=== PATIENT | male | born 1975 | race Caucasian/White ===

== ENCOUNTER 2021-07-08 15:38 | Emergency (ER) | payer MEDICAID, SELFPAY ==
--- NOTE | ~2021-07-08 | XR_ITS ---
EXAMINATION: XR chest 1V portable DATE: 07/08/2021 16:33 INDICATION: Right rib pain. TECHNIQUE: A single frontal view of the chest was obtained on 2 radiographs. COMPARISON: Chest 2 views 01/26/16 FINDINGS: There are airspace opacities in right midlung zone. No pleural effusion or pneumothorax. Th e heart size is normal. IMPRESSION: 1. Airspace opacities in right midlung zone, consistent with atelectasis versus pneumonia. Reviewed, dictated and finalized at location A.
--- NOTE | ~2021-07-08 | CT_ITS ---
EXAMINATION: CT abdomen pelvis w con DATE: 07/08/2021 17:53 INDICATION: Right upper quadrant abdominal pain. TECHNIQUE: Computed tomography (CT) of the abdomen and pelvis was performed with 100 mL Omnipaque 350 intravenous contrast. Automated exposure control and iterative reconstruction technique were employe d. The dose-length product was 295.34 mGy-cm. COMPARISON: CT abdomen and pelvis 03/24/2019 FINDINGS: The visualized portions of the lung demonstrate minimal atelectasis. No pleural effusion. T here is a right posterior diaphragmatic hernia containing fat. The heart size is normal. No pericardi al effusion. There is periportal edema in the liver. The gallbladder, spleen, pancreas, and adrenal g lands are normal. There are cysts in the kidneys measuring up to 7 mm in the left. There are no dilat ed loops of bowel. The appendix is normal. There are no pathologically enlarged lymph nodes. There is a small volume of pelvic ascites. There is edema of the intra-abdominal fat. There is mild lumbar sp ondylosis. IMPRESSION: 1. Small volume of pelvic ascites. Reviewed, dictated and finalized at location A.
[2021-07-08 15:40] VITALS: BP 147/89; PULSE 56; RESP 18; TEMP 37.3; O2SAT 100
--- NOTE | 2021-07-08 16:00 | ECG_ITS ---
Measurements Intervals [place] Rate: 57 P: 165 CT: 114 QRS: 144 QRSD: 89 T: 150 QT: 401 QTc: 391 Interpretive Statements SINUS BRADYCARDIA WITH SHORT CT INTERVAL LIMB LEAD REVERSAL INCOMPLETE RIGHT BUNDLE BRANCH BLOCK BORDERLINE ST-T WAVE ABNORMALITY- HIGH LATERAL LEADS BORDERLINE ECG Electronically Signed On 07-08-2021 20:41:41 CDT by Rocky Hernandez D.O.
[2021-07-08 16:13] LABS: Basophils Percent Auto 0.4 % (0.2-1.2); Eosinophils Absolute Auto 0.2 K/mm3 (0-0.3); Eosinophils Percent Auto 1.6 % (0-4.4); Hematocrit 45.1 % (42.0-52.0); Hemoglobin 14.6 g/dL (14.0-18.0); Immature Granulocyte Absolute 0.03 K/mm3 (0.00-0.031); Immature Granulocyte Percent A 0.3 % (0-0.5); Lymphocytes Absolute Auto 2.21 K/mm3 (0.9-3.2); Lymphocytes Percent Auto 21.5 % (18.3-44.2); Mean Corpuscular HGB Conc 32.4 g/dl (32-36); Mean Corpuscular Hemoglobin 28.1 pg (26-34); Mean Corpuscular Volume 86.9 fl (80-100); Mean Platelet Volume 11.2 fl (7.4-10.4); Monocytes Absolute Auto 0.8 K/mm3 (0.1-0.6); Monocytes Percent Auto 7.4 % (2.6-8.5); Neutrophils Absolute Auto 7.1 K/mm3 (1.3-6.7); Neutrophils Percent Auto 68.8 % (45.5-73.1); Platelet Count Result 233 k/mm3 (150-375); Red Blood Count 5.19 M/mm3 (4.6-6.20); Red Cell Distribution Width 14.2 % (11.5-14.5); White Blood Count 10.3 K/mm3 (4.5-10.0)
[2021-07-08 16:27] LABS: Alanine Aminotransferase 14 U/L (4-50); Albumin Level 4.4 g/dL (3.5-5.1); Alkaline Phosphatase 53 U/L (38-126); Anion Gap 5 mmol/L (8-16); Aspartate Amino Transferase 23 U/L (17-59); Bilirubin,Total 0.4 mg/dL (0.2-1.3); Blood Urea Nitrogen 16 mg/dL (9-20); Calcium 9.1 mg/dL (8.4-10.2); Carbon Dioxide 27 mmol/L (22-30); Chloride 104 mmol/L (98-107); Estimated CRCL calculation 85 ml/min; Estimated Glomerular Filt Rate > 60; Glucose 106 mg/dL (65-110); Lipase 71 U/L (23-300); Potassium 3.9 mmol/L (3.4-5.0); Sodium 136 mmol/L (137-145)
--- NOTE | 2021-07-08 16:28 | ED.GENADULT ---
HPI - General Adult General Chief complaint: Abdominal Pain Stated complaint: right side pain Time Seen by Provider: 07/08/21 16:09 Source: patient and RN notes reviewed Mode of arrival: ambulatory Limitations: no limitations History of Present Illness HPI narrative: This is a 45 year old male who presents for evaluation of right lower rib pain. He developed pain on and it has remained constant . He describes his pain has dull and it becomes sharp with movement. He denies associated nausea, vomiting, fever, chills, cough, shortness of breath. He also denies pain worsening with eating. He rates pain 6/10. Took ibuprofen and someone else hydrocodone without relief. Of note, patient became near syncopal when walking to bathroom. Related Data Home Medications Medication Instructions Recorded Confirmed levothyroxine 07/08/21 Allergies Allergy/AdvReac Type Severity Reaction Status Date / Time No Known Allergies Allergy Verified 07/08/21 16:06 Review of Systems Review of Systems: All systems reviewed & are unremarkable except as noted in HPI and below PMFSH Past Medical History Medical History (Updated 07/09/21 @ 00:00 by Marcia Shields) Hypothyroid Surgical History Surgical History (Updated 07/08/21 @ 16:32 by Ambar Benton MD) Hx of tonsillectomy Family History Family History (Updated 06/30/14 @ 07:13 by DOCTOR UNKNOWN) Grandparent Carcinoma of colon Social History Social History (Updated 07/08/21 @ 16:32 by Ambar Benton MD) Smoking packs per day: 0.5 Smoking cigarettes per day: 10.0 Smoking status: Current every day smoker Alcohol intake: current Substance use type: marijuana Exam Const: General: no acute distress and alert Nutritional Appearance: thin Orientation/consciousness: patient oriented x3 Eyes: EOM: EOMs intact bilaterally Chest: Chest palpation & inspection: normal inspection of the chest Resp: Effort & Inspection: normal respiratory effort and no retractions Auscultation: clear to auscultation bilaterally Cardio: Rate: regular rate Rhythm: regular rhythm Heart sounds: no murmurs GI: GI Palp: Yes Soft to palpation, Yes Tenderness to palpation present (GI) (RUQ), No Guarding due to palpation present (GI) and No Rigid due to palpation Auscultation: normal bowel sounds Back/Spine/Pelvis: Back: no CVA tenderness Skin: General skin exam: normal color Rashes: no rashes Neuro: General: patient oriented x3, moves all extremities and CN's II-XI intact bilaterally Extrem: General: normal to inspection Psych: Mental Status: mental status grossly normal Affect: normal affect Course Reevaluation(s) Reevaluation #1: I Discussed with patient labs and CT scan. I discussed with patient that he will need to follow up with PCP regarding today's visit. Date: 07/08/21 Time: 19:36 Vital Signs Vital signs: Vital Signs Temperature 99.2 F 07/08/21 15:40 Pulse Rate 56 L 07/08/21 15:40 Respiratory Rate 18 07/08/21 15:40 Blood Pressure 147/89 H 07/08/21 15:40 Pulse Oximetry 100 07/08/21 15:40 Temperature 99.2 F 07/08/21 15:40 Pulse Rate 52 L 07/08/21 19:55 Respiratory Rate 14 07/08/21 19:55 Blood Pressure 142/91 H 07/08/21 19:55 Pulse Oximetry 99 07/08/21 19:55 Medical Decision Making Vital Signs Vital Signs: Vital Signs Temperature 99.2 F 07/08/21 15:40 Pulse Rate 56 L 07/08/21 15:40 Respiratory Rate 18 07/08/21 15:40 Blood Pressure 147/89 H 07/08/21 15:40 Pulse Oximetry 100 07/08/21 15:40 Temperature 99.2 F 07/08/21 15:40 Pulse Rate 52 L 07/08/21 19:55 Respiratory Rate 14 07/08/21 19:55 Blood Pressure 142/91 H 07/08/21 19:55 Pulse Oximetry 99 07/08/21 19:55 Lab Data Lab results reviewed: Yes I reviewed the patient's lab results. Result diagrams: 07/08/21 15:52 07/08/21 15:52 Labs: Lab Results 07/08/21 07/08/21
[2021-07-08 16:40] VITALS: BP 124/86; PULSE 55
[2021-07-08 16:42] VITALS: BP 133/90; PULSE 57
[2021-07-08 16:44] VITALS: BP 122/92; PULSE 60
[2021-07-08] MEDS: LACTATED RINGERS 1,000 ML 999 ML IV CONT (16:56)
[2021-07-08] MEDS: ONDANSETRON INJ 4 MG/2 ML VIAL IV PUSH (16:57)
[2021-07-08 16:59] LABS: Magnesium 1.9 mg/dL (1.6-2.3)
[2021-07-08 17:08] LABS: Partial Thromboplastin Time 27.4 SECONDS (22.3-36.8); Prothrombin Time 12.9 Seconds (11.1-14.7)
[2021-07-08 17:36] LABS: D Dimer 0.27 ug/mL (<0.48)
[2021-07-08 18:46] VITALS: BP 127/77; PULSE 54; RESP 16; O2SAT 100
[2021-07-08 18:47] LABS: NT Pro B Type Natriuretic Pept 131 pg/mL (5-100); Troponin I < 0.012 ng/mL (0.000-0.034)
[2021-07-08 18:58] LABS: Add Urine Microscopic? YES; Appearance Urine Clear (Clear); Bilirubin Urine Negative (Negative); Blood Urine Negative (Negative); Color Urine Colorless (Yellow); Glucose Urine UA Negative (Negative); Ketones Urine Trace mg/dL (Negative); Leukocyte Esterase Ur Negative LEU/UL (Negative); Mucus Urine Rare /lpf; Nitrate Urine Negative (Negative); Protein Urine Negative (Negative); RBC Urine 0-2 /hpf (0-2); Urobilinogen Urine Negative mg/dL (<2.0); WBC Urine 0-3 /hpf
[2021-07-08 19:08] LABS: Specific Grav Ur 1.047 (1.001-1.035)
[2021-07-08 19:44] LABS: Hepatitis B Surface Antigen Negative (Negative)
[2021-07-08] MEDS: KETOROLAC 30 MG/ML VIAL (*BKC) IV PUSH (19:47)
[2021-07-08 19:50] LABS: HAV RESULT Negative (Negative); Hepatitis B Core IgM Result Negative (Negative)
[2021-07-08 19:55] VITALS: BP 142/91; PULSE 52; RESP 14; O2SAT 99
[2021-07-08 20:02] LABS: Hepatitis C Virus Antibody Negative (Negative)
== END 2021-07-08 20:08 | disposition home or self-care (01) ==
PROVIDERS: Emergency Medicine; Emergency Provider General Practice; PCP Nurse Practitioner Family
DX: R10.11 Right upper quadrant pain (principal); R55 Syncope and collapse; R60.9 Edema, unspecified; K44.9 Diaphragmatic hernia without obstruction or gangrene; E03.9 Hypothyroidism, unspecified; F17.210 Nicotine dependence, cigarettes, uncomplicated; R00.1 Bradycardia, unspecified; I45.10 Unspecified right bundle-branch block; R94.31 Abnormal electrocardiogram [ECG] [EKG]
CPT/HCPCS: 36415; 71045; 74177; 80053; 80074; 81001; 83690; 83735; 83880; 84484; 85025; 85380; 85610; 85730; 93005; 96361; 96374; 96375; 99284; J0131; J1885; J2405; J7120; Q9967

== ENCOUNTER → 2021-10-09 03:02 | Outpatient (CLI) | payer OTHER, SELFPAY ==
[2021-10-09 20:28] LABS: SARS-CoV-2 RNA PCR Negative
== END ==
PROVIDERS: PCP Nurse Practitioner Family
DX: Z20.822 Contact with and (suspected) exposure to COVID-19 (principal)
CPT/HCPCS: C9803; U0003; U0005

== ENCOUNTER 2022-03-06 11:04 | Outpatient (CLI) | payer OTHER, SELFPAY ==
--- NOTE | ~2022-03-06 | US_ITS ---
EXAMINATION: US thyroid DATE: 03/06/2022 11:50 INDICATION: Hypothyroidism. TECHNIQUE: Multiple ultrasound images of the thyroid were obtained. COMPARISON: None. FINDINGS: The right thyroid lobe measures 2.9 x 1.5 x 1.9 cm. The left thyroid lobe measures 3.4 x 1.1 x 1.1 c m. The thyroid demonstrates heterogeneous echogenicity. No discrete nodule. Vascularity is normal. IMPRESSION: 1. Heterogeneous thyroid, likely chronic lymphocytic (Rodolfo) thyroiditis. Reviewed, dictated and finalized at location B.
== END 2022-03-06 11:05 | disposition home or self-care (01) ==
PROVIDERS: PCP Nurse Practitioner Family
DX: E03.9 Hypothyroidism, unspecified (principal)
CPT/HCPCS: 76536

== ENCOUNTER 2022-11-19 09:53 | Outpatient (CLI) | payer OTHER, SELFPAY ==
--- NOTE | ~2022-11-19 | XR_ITS ---
XR thoracic spine 2V DATE: 11/19/2022 10:14 INDICATION: Chronic back pain, bilateral foot tingling TECHNIQUE: AP, lateral, swimmer views COMPARISON: 01/31/2012 MR thoracic spine FINDINGS: There is mild levoscoliosis of the upper thoracic spine and mild dextroscoliosis of the low er thoracic spine. No fracture or dislocation or bone destruction. The thoracic pedicles are intact. No paraspinal soft tissue thickening. IMPRESSION: Mild thoracic scoliosis Reviewed, dictated and finalized at location L. 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
--- NOTE | ~2022-11-19 | XR_ITS ---
XR lumbar spine 2-3V DATE: 11/19/2022 10:15 INDICATION: Chronic low back pain, bilateral foot tingling TECHNIQUE: AP, lateral views COMPARISON: 05/05/2007 lumbar spine FINDINGS: There is mild degenerative spurring of the L2-L5 lumbar vertebral bodies. Lumbar and lumbos acral interspaces are well preserved. Included lower thoracic and lumbar pedicles are intact. No fracture or bone destruction. No spondylol isthesis. The sacroiliac joints are normal. IMPRESSION: Mild degenerative change Reviewed, dictated and finalized at location L. 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
--- NOTE | 2022-11-19 15:09 | WPDPFTINT ---
PFT Procedure Performed PFT Procedure Performed Spirometry with Pre/Post Bronchodilator Plethysmography (Lung Vol) Diffusing Cap (DLCO) Flow Vol Loop PFT Interpretation This is a pulmonary function test with pre and post-bronchodilator spirometry, plethysmography and diffusing capacity. The test was performed and results interpreted in accordance with the 2019 and 2005 ATS/ERS Task Force guidelines respectively using the Global Lung Function Initiative-2012 reference equations. Patient demonstrated good effort and cooperation. Reproducibility criteria were met. The quality of the pre bronchodilator spirometry maneuver was Grade A and post bronchodilator spirometry maneuver was Grade A. Findings: Spirometry: The contour the inspiratory and expiratory flow tracing are normal. The pre bronchodilator FVC is 6.54 L, 108% predicted. The pre bronchodilator FEV1 is 4.87 L, 103% predicted. The pre bronchodilator FEV1: FVC ratio 75%. The post bronchodilator FVC is 6.43 L, representing a 2% decrease. The post bronchodilator FEV1 is 4.79 L, representing a 2% decrease. The post bronchodilator FEV1: FVC ratio 75%. Plethysmography: The total lung capacity is 8.62 L, 108% predicted. Functional residual capacity is 4.45 L, 107% predicted. The residual volume is 2.08 L, 92% predicted. Diffusing capacity: The diffusing capacity unadjusted for hemoglobin and carboxyhemoglobin is 29.9, 89% predicted. The diffusing capacity adjusted for alveolar volume is 4.06, 93% predicted. Impression: The spirometry is normal without evidence of an obstructive abnormality. There is no significant improvement after inhaling a single dose of albuterol. The lung volumes are normal. The diffusing capacity is normal. There are no prior studies for comparison
== END 2022-11-19 09:54 | disposition home or self-care (01) ==
PROVIDERS: PCP Nurse Practitioner Family; Visit Provider Internal Medicine Endocrinology, Diabetes & Metabolism
DX: R06.09 Other forms of dyspnea (principal); M41.9 Scoliosis, unspecified; M46.06 Spinal enthesopathy, lumbar region
CPT/HCPCS: 72070; 72100; 94060; 94726; 94729

== ENCOUNTER 2024-12-19 15:51 | Emergency (ER) | payer SELFPAY ==
--- NOTE | 2024-12-19 15:57 | ED.WOUNDLAC ---
HPI - Wound/Laceration General Chief Complaint: Wound/Laceration Stated Complaint: Right Hand Laceration Time Seen by Provider: 12/19/24 16:05 Source: patient and RN notes reviewed Mode of arrival: ambulatory Limitations: no limitations History of Present Illness HPI narrative: 49-year-old male presents with concern for laceration to his right hand. Reports he was doing dishes when he cut his finger on a broken glass. He is not sure of his tetanus status. He denies any decreased strength, sensation, range of motion in the hand or digits. Related Data Home Medications ?Medication ?Instructions ?Recorded ?Confirmed ?Last Taken ?Type levothyroxine 112 mcg tablet 07/08/21 07/08/21 History Allergies Allergy/AdvReac Type Severity Reaction Status Date / Time No Known Allergies Allergy Verified 12/19/24 15:57 Review of Systems Review of Systems: CONSTITUTIONAL: Denies malaise, chills, sweats, or fever. SKIN: Reports laceration to the right hand MUSCULOSKELETAL: Denies muscle skeletal pain NEUROLOGIC: Denies numbness, weakness All systems reviewed & are unremarkable except as noted in HPI and below PMFSH Past Medical History Medical History (Updated 12/19/24 @ 16:14 by Annette Roy NP) Hypothyroid Surgical History Surgical History (Updated 07/08/21 @ 16:32 by Ambar Benton MD) Hx of tonsillectomy Family History Family History (Updated 06/30/14 @ 07:13 by DOCTOR UNKNOWN) Grandparent Carcinoma of colon Social History Social History (Updated 07/08/21 @ 16:32 by Ambar Benton MD) Smoking packs per day: 0.5 Smoking cigarettes per day: 10.0 Smoking status: Current every day smoker Alcohol intake: current Substance use type: marijuana Comments At time of signature, agree with nursing past medical, surgical, social and family history. There is no relevant family history pertinent to the presenting complaint Exam Narrative: GENERAL: Well-appearing, well-nourished, and in no acute distress. HEAD: Normocephalic EYES: PERRLA, conjunctivae clear NECK: Supple. CHEST: Speaks in full sentences. No respiratory distress. HEART: Regular rate and rhythm. Normal and equal peripheral pulses. EXTREMITIES: Right hand and digits of hand have normal strength and sensation. 5/5 strength with digit flexion, extension. Range of motion normal. No clubbing, cyanosis, or edema noted. No tenderness.Normal digital cascade with flexion of fingers, median, ulnar and radial nerve intact. Normal sensation of each side of finger. Can perform 'okay' sign, 'cross over finger test of index and middle fingers' and 'thumbs up' sign. No scissoring. Normal thumb opposition. Good capillary refill and radial pulse. Distal capillary refill less than 3 seconds. SKIN: Warn, dry, intact, pink. 2 cm laceration in the web between the 3rd and 4th digits into the subcutaneous tissue NEURO: Alert and oriented x3. PSYCH: Normal mood and affect Course Course Emergency Course: Patient is aware of diagnosis, understands and agrees to treatment plan. Anticipatory guidance given. Patient agrees to follow-up as directed and is aware of reasons to seek care at the emergency department. Portions of this record may have been created with voice recognition software Level of Care: Express Care Visit Vital Signs Vital signs: Reviewed. Procedures Laceration Laceration 1: Date: 12/19/24 Time: 16:12 Site: hand Side (If applicable): right Size (cm): 2 Description: linear Depth: simple, single layer Local Anesthetic: lidocaine 1% Amount of anesthesia used (mL): 4 ====== Skin Level ====== Skin layer closed with: nylon Size (cm): 4-0 Number of sutures: 4 Technique: simple, interrupted ====== Subcutaneous Layer ====== ====== Muscle Layer ====== ====== Tendon Layer ====== MDM - Wound/Laceration MDM Narrative Medical decision making narrative: Wound explored for foreign body and copious irrigation provided with no evidence of FB. Discussed the potential of retained foreign body with the patient and signs/symptoms that should prompt the patient to immediately go to the ED for reevaluation. The wound was explored and no foreign bodies were found. There was no evidence of tendon or nerve lacerations.A sterile dressing was then applied and anticipatory guidance was provided. Tetanus prophylaxis [(was/was not)] given Differential Diagnosis Differential diagnosis: Likely laceration, abrasion and avulsion of skin Critical Care Time Critical Care Time Critical Care Time: No Discharge Plan Discharge Clinical Impression: Hand laceration Patient Disposition: Home, Self-Care Condition: Stable Instructions: Laceration (ED) Additional Instructions: Keep wound clean, and dry. Apply antibiotic ointment twice daily. Cover with bandage as needed to prevent contamination. Clean with soap and water twice daily, but do not soak, take baths, or swim until wound is completely healed. Do not clean with hydrogen peroxide. If any signs of infection such as redness, swelling, increasing pain, drainage of purulent discharge, streaks up your extremity develop, seek medical attention immediately. Followup with your primary care provider in 10 days for suture removal. Patient Language: Telugu Prescriptions: No Action levothyroxine 112 mcg tablet Follow-up/Referrals: Stanford Cyr MD [Primary Care Provider] - Time of Disposition: 16:14
[2024-12-19 15:59] VITALS: BP 143/89; PULSE 69; RESP 16; TEMP 37.1; O2SAT 100
[2024-12-19] MEDS: TETANUS,DIPHTHERIA,AC PERTUSSIS ADULT (0.5 ML) BOOSTRIX IM (16:24)
[2024-12-19] MEDS: LIDOCAINE 1% LOCAL INJ 2 ML AMPUL 4 ML INFILTRATE (16:25)
== END 2024-12-19 16:50 | disposition home or self-care (01) ==
PROVIDERS: Emergency Provider Nurse Practitioner; PCP Family Medicine
DX: S61.411A Laceration without foreign body of right hand, initial encounter (principal); W25.XXXA Contact with sharp glass, initial encounter; Y93.G1 Activity, food preparation and clean up; Z23 Encounter for immunization; F17.210 Nicotine dependence, cigarettes, uncomplicated; F12.90 Cannabis use, unspecified, uncomplicated; E03.9 Hypothyroidism, unspecified
CPT/HCPCS: 12001; 90471; 90715; 99212; G0463; J2003

== ENCOUNTER 2025-04-11 08:27 | Emergency (ER) | payer SELFPAY ==
--- NOTE | ~2025-04-11 | XR_ITS ---
Left foot Technique: AP, oblique, and lateral views were obtained. Clinical History: Foreign body Findings: No acute fracture or dislocation is seen. Osseous alignment is anatomic. Joint spaces are p reserved without erosive or degenerative change. Soft tissues are unremarkable. Impression: Unremarkable left foot radiographs. Reviewed, dictated and finalized at [facility]. Impression: Unremarkable left foot radiographs.
[2025-04-11 08:30] VITALS: BP 144/90; PULSE 56; RESP 17; TEMP 36.6; O2SAT 100
--- NOTE | 2025-04-11 08:34 | ED_ITS ---
HPI - Extremity Injury (Lower) General Chief Complaint: Extremity Injury, Lower Stated Complaint: stepped on nail Time Seen by Provider: 04/11/25 08:41 Source: patient, RN notes reviewed and old records reviewed Mode of arrival: ambulatory Limitations: no limitations History of Present Illness HPI Narrative: 49-year-old male presents to the [facility] with decreased range of motion of his ankle and toes 4/5 on the left foot since . Patient reports 3 weeks ago he stepped on a metal lawn ornament through his crocks. No redness, no swelling, no pain. Patient reports that intermittently he has had pain and cramping in the foot and leg. States that sometimes it goes numb any falls. Patient originally denied any past medical history other than thyroid disorder. Denied any back pain or injuries. Related Data Home Medications ?Medication ?Instructions ?Recorded ?Confirmed ?Last Taken ?Type levothyroxine 112 mcg tablet 07/08/21 07/08/21 History Allergies Allergy/AdvReac Type Severity Reaction Status Date / Time No Known Allergies Allergy Verified 04/11/25 08:41 Review of Systems Review of Systems: All systems reviewed & are unremarkable except as noted in HPI and below Constitutional: Constitutional: Reports no additional constitutional complaints ENT: Reports system reviewed and no additional complaints, except as docum ented Cardiovascular: Cardiovascular: Reports no additional cardiovascular complaints, Denies chest pain and Denies dyspnea Respiratory: Respiratory: Reports no additional respiratory complaints, Denies chest congestion, Denies cough and Denies dyspnea Musculoskeletal: Musculoskeletal: Reports as per HPI Integumentary/Breasts: Skin/Breast: Reports system reviewed and no additional complaints, except as docu PMFSH Past Medical History Medical History Hypothyroid Surgical History Surgical History Hx of tonsillectomy Family History Family History Grandparent Carcinoma of colon Social History Social History Smoking packs per day: 0.5 Smoking cigarettes per day: 10.0 Smoking status: Current every day smoker Alcohol intake: current Substance use type: marijuana Comments At the time of my signature, I reviewed and agree with the nursing past medical, surgical, social, and family history. There is no relevant family history pertinent to the patient complaint. Exam Const: General: cooperative, healthy appearing, comfortable, no acute distress, well developed, alert and well nourished Nutritional Appearance: well nourished Orientation/consciousness: patient oriented x3 Limitations: no limitations HENMT: Head: normal to inspection Mouth: Yes Normal oral and palatal mucosa present, Yes lip normal, Yes tongue normal and Yes moist mucous membranes Eyes: General: appearance normal, both eyes and all related structures Alignment and Position: alignment normal Neck: Neck: normal visual inspection, full ROM, no lymphadenopathy and no meningeal signs Chest: Chest palpation & inspection: normal inspection of the chest Resp: Effort & Inspection: normal respiratory effort and able to speak in complete sentences Cardio: Rate: regular rate GI: GI Palp: No abdominal tenderness Back/Spine/Pelvis: Back: no CVA tenderness Cervical Spine: normal cervical lordosis, cervical ROM normal and No Cervical spine tenderness Thoracic/Lum bar Spine: No thoraco-lumbar spasm, No thoracic spinal tenderness and No lumbar spinal tenderness Pelvis: no pain with anterior-posterior compression and no pain with lateral compression Skin: General skin exam: normal color and no rashes or lesions noted Neuro: General: patient oriented x3, moves all extremities and no meningeal signs Cognition (Neuro): normal cognition Speech: normal speech Gait exam (Neuro): Normal gait present Extrem: General: normal to inspection, full ROM, capillary refill normal and normal gait Left lower extremity: ankle Details: no edema and abnormal ROM (Decreased range of motion without pain) and foot Details: normal capillary refill, abnormal ROM of toe, vascular exam Details: dorsalis pedis pulse present and normal capillary refill, motor-sensory exam light-touch normal in all toes and other (Decreased range of motion to toes foreign 5.); no tenderness, no ecchymosis, no foreign bodies and no puncture wound Psych: Appearance: grossly normal and well kempt Mental Status: mental status grossly normal Speech and movement: Normal speech and movement present and Clear speech present Affect: normal affect Attitude: cooperative Course Course Level of Care: Express Care Visit Vital Signs Vital signs: Vital Signs Temperature 97.8 F 04/11/25 08:30 Pulse Rate 56 L 04/11/25 08:30 Respiratory Rate 17 04/11/25 08:30 Blood Pressure 144/90 H 04/11/25 08:30 Pulse Oximetry 100 04/11/25 08:30 Oxygen Delivery Room Air 04/11/25 08:30 Temperature 97.8 F 04/11/25 08:30 Pulse Rate 56 L 04/11/25 08:30 Respiratory Rate 17 04/11/25 08:30 Blood Pressure 144/90 H 04/11/25 08:30 Pulse Oximetry 100 04/11/25 08:30 Oxygen Delivery Room Air 04/11/25 08:30 Reviewed MDM - Extremity Injury (Lower) MDM Narrative Medical decision making narrative: Patient sitting in exam room. Patient is nontoxic, vitals stable. Patient presents with 4 day history of decreased range of motion of the ankle and toes 4 and 5. Patient was originally concerned that it was from stepping on a lawn or min. No erythema, ecchymosis, no tenderness to the heel. No puncture wound noted. Discussed with patient more concern for back issues in regards to the decreased range of motion and falling. Discussed going to the ER which he is declining. Wants follow-up with primary care provider. Discussed in great detail signs and symptoms to proceed to the emergency room. Discussed that symptoms may be from his back. Patient denies any loss or retention of bowel or bladder. Denies any pain currently on exam. Denies any numbness or tingling in extremities currently. Discharge instructions reviewed with patient, as well as provided in writing per nursing staff. The instructions also include specific and strict return/GO TO THE ER as well as f/u information. All questions have been answered, and the patient deny any further questions with discharge and discharge plan. Some parts of this dictation were generated by voice recognition software and may contain typographical and/or grammatical inaccuracies. Differential Diagnosis Differential diagnosis: Likely ankle sprain and strain and other (Infection, tendinitis from puncture wound, lumbar strain, sprain, lumbar radiculopathy, sciatica) Imaging Data Radiologist's impression: Left foot Technique: AP, oblique, and lateral views were obtained. Clinical History: Foreign body Findings: No acute fracture or dislocation is seen. Osseous alignment is wendi omic. Joint spaces are preserved without erosive or degenerative change. Soft tissues are unremarkable. Impression: Unremarkable left foot radiographs. Critical Care Time Critical Care Time Critical Care Time: No Discharge Plan Discharge Clinical Impression: Decreased range of motion of left ankle, History of low back pain, Multiple falls Patient Disposition: Home Condition: Stable Instructions: Antibiotic Form, Acute Low Back Pain (ED) Additional Instructions: Follow-up with your primary care provider as soon as possible for further evaluation, testing and treatment For worsening symptoms go directly to the emergency room Patient Language: Lao Prescriptions: No Action levothyroxine 112 mcg tablet Follow-up/Referrals: Kalpesh,Emily Dumont NP [Primary Care Provider] - 2 Days ([facility] follow-up) Stand Alone Forms: Work/School Release IP Time of Disposition: 09:21
== END 2025-04-11 09:28 | disposition home or self-care (01) ==
PROVIDERS: Emergency Provider Nurse Practitioner; PCP Nurse Practitioner Family
DX: M25.872 Other specified joint disorders, left ankle and foot (principal); M54.50 Low back pain, unspecified; R29.6 Repeated falls; F17.210 Nicotine dependence, cigarettes, uncomplicated; E03.9 Hypothyroidism, unspecified
CPT/HCPCS: 73630; 99213; G0463

== ENCOUNTER 2025-05-24 07:09 | Outpatient (CLI) | payer MEDICAID, SELFPAY ==
--- NOTE | ~2025-05-24 | MR_ITS ---
EXAMINATION: MR ankle LT wo con DATE: 05/24/2025 08:00 INDICATION: Spontaneous rupture of the extensor tendons at the left ankle with left foot drop TECHNIQUE: Magnetic resonance imaging (MRI) of the left ankle was performed without intravenous contr ast. Sequences included sagittal, coronal, and axial proton-density weighted fast spin echo without a nd with fat saturation. COMPARISON: None. FINDINGS: Medial ankle ligaments: Deep deltoid ligament is normal. There is thickening and mild increased signal at navicular side of t he anterior superficial deltoid ligament as well as the superomedial component of the spring ligament complex without significant surrounding edema consistent with scarring related to chronic sprain. Th e medial plantar oblique and infra plantar lateral components of the spring ligament complex remains normal. Lateral ankle ligaments: The anterior and posterior inferior tibiofibular ligaments are normal. The anterior talofibular, calc aneofibular and posterior talofibular ligaments are normal. Tendons: Achilles tendon is normal. There is fluid along the peroneal tendon sheath consistent with mild to mo derate tenosynovitis. There is tendinopathy and longitudinal split tearing of the peroneus brevis ten don at the level of the posterior lateral malleolus where there is a convex contour to the expected l ocation retromalleolar groove. The tibialis anterior and extensor hallucis longus and extensor digito rum longus tendons are normal. The tibialis posterior, flexor digitorum longus and flexor hallucis lo ngus tendons are normal. Plantar fascia: Plantar aponeurosis is normal. Bones/other: Bone alignment is normal. No fracture. Small low signal intensity bone islands at the tibial plafond and and a couple at the talar dome. There are some increased fluid signal and small centrally sclerot ic focus within a 2.9 x 2.7 x 2.5 cm fat saturating intraosseous lipoma within the central calcaneus. No other pathologic marrow replacing process. Joint spaces appear relatively preserved. Fluid: Physiologic amount fluid in the joint spaces. There is a 1.8 x 1.1 x 1.4 cm multilobulated ganglion c yst arising from and extending plantar to the articulation between the cuboid and the lateral cuneifo rm. IMPRESSION: 1. Mild to moderate peroneal tenosynovitis with tendinopathy and longitudinal split tearing of the pe roneus brevis tendon. 2. Mild scarring related to chronic sprain at the anterior aspect of the superficial deltoid ligament and the clavicular side of the superomedial component of the spring ligament complex. 3. Visualized portions of the extensor tendons of the foot and ankle are normal with no etiology iden tified for reported foot drop. Reviewed, dictated and finalized at location A. IMPRESSION: 1. Mild to moderate peroneal tenosynovitis with tendinopathy and longitudinal s plit tearing of the peroneus brevis tendon. 2. Mild scarring related to chronic sprain at the anterior aspect of the superf icial deltoid ligament and the clavicular side of the superomedial component of the spring ligament complex. 3. Visualized portions of the extensor tendons of the foot and ankle are normal with no etiology identified for reported foot drop.
--- OUTSIDE RECORDS SUMMARY | 2025-05-24 07:13 | XMS_ITS | Patient Health Record ---
Author Organization [facility] Address [address] [facility] [address] [place] [address] Care Team Providers Care Check Airman Name Role Phone Juan Limon Unavailable [phone] Reason For Referral No Information Medications Medication SIG (Take, Route, Frequency, Duration) Notes Start Date End Date Status Unithroid 125 MCG Oral Ac tive Propranolol HCl 10 MG Oral Active Unithroid 137 MCG Oral Ac tive Liothyronine Sodium 5 MCG Oral Active Doxycycline Hyclate 100 MG Oral Active Sertraline HCl 25 MG Oral Active Azithromycin 500 MG Oral Active Plan Of Treatment No Information
--- OUTSIDE RECORDS SUMMARY | 2025-05-24 07:13 | XMS_ITS | Data Portability ---
Author Organization [place] [facility] [place] [facility], Main Office Address [address] [place] [address] Assessment No assessment recorded. Plan of Treatment Reminders Order Date Submit Date Provider Last Modified By Organization Details Last Modified Time Details Appointments Follow Up 15 2024 03:30P GONZALO Tejada Not available Not available Not available Lab TSH, serum or plasma 2024 025 [facility], [address], [address], [place], [address], 01/28/2025 08:20:59 TSH + free T4, serum 2023 024 [facility] ([facility] [address] [place], [address], 11/14/2023 11:50:40 TSH + free T4, serum 2022 023 [email or web address] [facility], [address], [place], [address], 09/23/2023 09:30:28 Referral podiatris t referral - Please call patient to schedule an appointme nt. Thank you. 2024 025 ISHAN Zhou DPM, [address] [facility], [facility] [address], [address], 04/15/2025 12:15:58 psychiatr ist referral - Please call patient to schedule appointme nt. 2023 024 [email or web address] Juan Limon MD, [address], [address], [place], [address], 12/12/2023 14:32:14 gastroent erologist referral 2022 023 [email or web address] Ida Weiss MD, [address], [address], [place], [address], 12/08/2023 09:49:41 counselin g referral 2022 023 [email or web address] [facility], [address], [place], [address], 01/23/2024 10:16:41 endocrino logy referral 2022 023 [email or web address] [facility], [address] [place], [address], 01/23/2024 10:16:08 Procedures colonosco py procedure (PROC) [email or web address] [place] [address] Ctr (Pre-Screen), [address] [facility], [place], [address], 12/04/2023 08:11:49 Surgeries None recorded. Imaging MRI, sacrum + coccyx, w/o contrast - *Please call pt to schedule* [email or web address] [place] [address] (Imaging), [address], [place], [address], 10/23/2023 09:17:34 Medication Orders levothyro xine 137 mcg tablet 2024 025 [id number], [address] [facility], [place], [place], [id number], 04/13/2025 17:07:09 Unithroid 137 mcg tablet 2024 025 [facility] #06616, [address] , [place], [place], [id number], 01/21/2025 15:42:06 sertralin e 50 mg tablet 2024 025 [facility]84429, [address], [place], [place], [id number], 01/21/2025 15:42:11 Golytely 236 gram-22.7 4 gram-6.74 gram-5.86 gram oral solution [address] [facility]22741, [address], [place], [place], [id number], 01/21/2025 15:25:20 Unithroid 137 mcg tablet 2023 024 [facility]18143, [address], [place], [place], [id number], 11/14/2023 11:26:15 sertralin e 50 mg tablet 2023 024 [facility]18785, [address], [place], [place], [id number], 11/14/2023 11:26:16 sertralin e 25 mg tablet [address] [facility]86361, [address], [place], [place], [id number], 01/21/2025 15:27:06 propranol ol 10 mg tablet [address] [facility] #91714, [address], [place], [place], [id number], 01/21/2025 15:27:00 Patient TargetsNo targets recorded. Patient Instructions Encounter Date Encounter Id Patient Instructions Last Modified By Organization Details Last Modified Time 11/19/2023 [id number] GOLYTELY [email or web address] Not available 14:25:13 PT NEEDS A SCREENING COLON . R/O POLYP . RECOMMEND A COLONOSOPY . Risks benefits and complications were explained to the pt. ( BLEEDING PERFORATION , INFECTION , ). PT VERBALIZES UNDERSTANDING AND IS WILLING TO PROCEDE . 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 Thank you. Referring Physician: Bridget Glover [facility], Encounter Date: 04/13/2025 Results Created Date Observation Date Name Description Value Unit Range Abnormal Flag Note LastModifiedBy Organization Detail LastModifiedTime 12/09/19 24 12/01/2023 colon oscop y proce dure (PROC ) No observ ation record ed. [facility] (Pre-Screen) [address] [place], [address], 12/09/2023 15:20:14 Result Notes None recorded. Problems Name Problem SNOMED Code Status Onset Date Resolution Date Notes Provider Name and Address Organization Details Recorded Time Abdominal pain 89473942 Active Not Available [facility] 3 22:07:22 Ascites 253131101 Active Not Available [facility] 3 22:07:22 Hypothyroi dism 86518948 Active Not Available [facility] 3 22:07:22 Plain X-ray of lumbar spine abnormal 693448038 Active 2022 Alison Martínez MD [address], [address] , [facility] 3 14:55:46 Luteinizin g hormone level outside reference range 245219014 Active 2022 Alison Martínez MD [address], [place], [address] , [place] [facility] 3 14:56:17 Mycoplasma species or Ureaplasma urealyticu m 656772088 Active 2022 GONZALO Torrez [address], [place], [address] , [facility] 3 18:16:06 Mucus in stool 479907996 Active 2022 DILSHAD Bettencourt [address], [place], [address] , [facility] 3 11:40:38 Anxiety 99547494 Active 2022 DILSHAD Bettencourt [address], [address], [place], [address] , [facility] - [facility] 3 11:42:46 Low back pain 207879945 Active 2022 DILSHAD Bettencourt [address], [address], [place], [address] , [facility] 3 11:49:12 Altered bowel function 40567826 Active 2023 Ida Weiss MD [address], [address], [place], [address] , [facility] 4 14:24:34 Pain in coccyx 40325845 Active 2023 Ida Weiss MD [address], [place], [address] , [facility] 4 14:26:32 Left foot drop 0830220800522 05 Active 2024 GONZALO Moraes [address], [place], [address] , [facility] [employer] [facility] [employer] 5 17:04:31 Primary hypothyroi dism 83762003 Active 2024 GONZALO Moraes [address] [facility], [facility] [address], [place], [address] , [facility] 5 17:06:34 Problem Notes None recorded. Procedures Surgical History Date Name Laterality Status Provider Name and Address Organization Details Recorded Time Tonsillectomy completed Not Available [facility] 01/01/2023 22:06:24 Imaging Results None recorded. Procedure Notes None recorded. Medical Equipment None Reported. Allergies No known drug allergies Medications Name Sig Start Date Stop Date Status Note LastModified by Organization Details LastModified Time cyclobenzap rine 10 mg tablet TAKE 1 TABLET BY MOUTH 3 TIMES A DAY NEEDED 10/19 completed Not Available Not Available Not Available amoxicillin 500 mg capsule TAKE 1 CAPSULE BY MOUTH FOUR TIMES DAILY UNTIL ALL TAKEN 01/21 completed Not Available Not Available Not Available levothyroxi ne 137 mcg tablet TAKE 1 TABLET BY MOUTH DAILY. active Not Available Not Available No t Available doxycycline hyclate 100 mg capsule TAKE 1 CAPSULE BY MOUTH TWICE DAILY FOR 7 DAYS 01/21 completed Not Available Not Available Not Available azithromyci n 250 mg tablet TK 2 TS PO ON DAY 1, THEN TK 1 T PO D FOR 4 DAYS 08/09 completed Not Available Not Available Not Available peg-electro lyte solution 420 gram oral solution MIX AND DRINK DIRECTED 01/21 completed Not Available Not Available Not Available liothyronin e 5 mcg tablet TAKE 1 TABLET BY MOUTH IN THE MORNING WITH UNITHROID AND 1 TABLET AROUND 1 PM 01/21 completed Not Available Not Available Not Available Unithroid 125 mcg tablet TAKE 1 TABLET BY MOUTH EVERY DAY IN THE MORNING 07/17 completed Not Available Not Available Not Available propranolol 10 mg tablet TAKE 2 TABLETS BY MOUTH THREE TIMES DAILY NEEDED 01/21 completed Not Available Not Available Not Available cyanocobala min (vit B-12) 1,000 mcg/mL injection solution Inject 1 mL every week by subcutane ous route in the morning for 90 days. active Not Available Not Available No t Available sertraline 25 mg tablet TAKE 1 TABLET BY MOUTH EVERY DAY 01/21 completed Not Available Not Available Not Available cyanocobala min (vit B-12) 1,[address] 1 tablet every day by sublingua l route in the morning for 90 days. 01/21 completed Not Available Not Available Not Available albuterol sulfate HFA 90 mcg/actuati on aerosol inhaler INHALE 2 PUFFS BY MOUTH EVERY 4 HOURS 01/21 completed Not Available Not Available Not Available ketoconazol e 2 % topical cream APPLY TO THE AFFECTED AREA(S) BY TOPICAL ROUTE ONCE DAILY active Not Available Not Available No t Available sertraline 50 mg tablet TAKE 1 TABLET BY MOUTH EVERY DAY active Not Available Not Available No t Available levothyroxi ne 112 mcg tablet TAKE 1 TABLET BY MOUTH EVERY DAY active Not Available Not Available No t Available azithromyci n 500 mg tablet TAKE 2 TABLETS BY MOUTH FOR 1 DAY THEN TAKE 1 TABLET BY MOUTH DAILY FOR 3 DAYS 01/21 completed Not Available Not Available Not Available Golytely 236 gram-22.74 gram-6.74 gram-5.86 gram oral solution DIRECTED 01/21 completed Not Available Not Available Not Available Vitals Date Recorded Body height Body mass index (BMI) Body weight Body temperature Oxygen saturation Oxygen saturation in Arterial blood by Pulse oximetry Heart rate Systolic And Diastolic Provider Name and Address Organization Details Last Updated DateTime 4 190.5 cm 20.2 kg/m2 35917.9 6 g 97.2 [degF] 97 % 97 % 64 /min 130/80 mm[Hg] Chetna Kwan RN [facility] 4 10:57:56 Date Recorded Body height Body mass index (BMI) Body weight Provider Name and Address Organization Details Last Updated DateTime 11/19/2023 190.5 cm 20.2 kg/m2 93017.96 g JASON Alberts [facility] 11/19/2023 14:03:45 Date Recorded Body weight Body mass index (BMI) Body height Body temperature Heart rate Respiratory rate Oxygen saturation Oxygen saturation in Arterial blood by Pulse oximetry Systolic And Diastolic Provider Name and Address Organization Details Last Updated DateTime 5 08350.8 2 g 19.4 kg/m2 190.5 cm 97.3 [degF] 59 /min 20 /min 97 % 97 % 134/90 mm[Hg] Audrey Campos RN [facility] 5 15:29:38 Date Recorded Body height Body mass index (BMI) Body weight Body temperature Oxygen saturation Oxygen saturation in Arterial blood by Pulse oximetry Heart rate Systolic And Diastolic Provider Name and Address Organization Details Last Updated DateTime 5 190.5 cm 19.6 kg/m2 95274 g 97.8 [degF] 97 % 97 % 74 /min 152/84 mm[Hg] Crystal Mccord [facility] 5 16:47:01 Date Recorded Body height Body mass index (BMI) Body weight Body temperature Heart rate Oxygen saturation Oxygen saturation in Arterial blood by Pulse oximetry Systolic And Diastolic Provider Name and Address Organization Details Last Updated DateTime 3 190.5 cm 20.5 kg/m2 76629.1 5 g 97.3 [degF] 69 /min 98 % 98 % 140/80 mm[Hg] Viviana Nogueira LPN MD [facility] 3 11:32:33 Social History Question Answer Notes LastModified by Organizat ion Details LastModified Time Tobacco Smoking Status Current Every Day Smoker Not Available [facility] 01/01/2023 22:05:59 Do You Have An Advance Directive? No [id number] Information not available 01/01/2023 What Is Your Level Of Caffeine Consumption? Heavy MIGRATION.07323 02655 Information not available 01/01/2023 How Much Tobacco Do You Chew? None MIGRATION.29422 05681 Information not available 01/01/2023 What Is Your Code Status? Full Code [id number] [id number] Information not available 01/01/2023 In The 14 Days Before Symptom Onset, Have You Had Close Contact With A Laboratory-confi rmed COVID-19 While That Case Was Ill? No MIGRATION.92104 [id number] Information not available 01/01/2023 In The 14 Days Before Symptom Onset, Have You Had Close Contact With A Person Who Is Under Investigation For COVID-19 While That Person Was Ill? No MIGRATION.73035 83825 Information not available 01/01/2023 What Type Of Diet Are You Following? REGULAR MIGRATION.58623 11674 Information not available 01/01/2023 Have There Been Any Changes To Your Family Or Social Situation? Yes MIGRATION.39970 87595 Information not available 01/01/2023 Are There Any Guns Present In Your Home? No MIGRATION.90343 12835 Information not available 01/01/2023 Where Do You Live? SingleLevelHouse Information not available 01/21/2025 Do You Have A Medical Power Of Hook Tender? No MIGRATION.06627 50725 Information not available 01/01/2023 Do You Have Any Pets? Yes Information not available 01/21/2025 What Is Your Relationship Status? MIGRATION.14274 70941 Information not available 01/01/2023 Do You Use Your Seat Belt Or Car Seat Routinely? Yes MIGRATION.66209 84822 Information not available 01/01/2023 Do You Have Smoke And Carbon Monoxide Detectors In Your Home? Yes MIGRATION.42875 07871 Information not available 01/01/2023 Are You Passively Exposed To Smoke? No MIGRATION.01410 90576 Information not available 01/01/2023 How Much Tobacco Do You Smoke? 0.5 PPD Information not available 01/21/2025 Do You Use Sunscreen Routinely? Yes MIGRATION.31727 55256 Information not available 01/01/2023 Have You Recently Traveled Abroad? No MIGRATION.68218 41815 Information not available 01/01/2023 Have You Used IV Drugs? No MIGRATION.52177 08213 Information not available 01/01/2023 Do You Have Any Dietary Restrictions? No MIGRATION.38496 73881 Information not available 01/01/2023 Sex: Unknown Functional Status Question Answer Note LastModified by Organizat ion Details LastModified Time Do you use any illicit or recreational drugs? Yes 0ccasional marijuana use MIGRATION.41312 37806 Information not available 01/01/2023 What is your level of alcohol consumption? Occasional MIGRATION.61349 64085 Information not available 01/01/2023 Are you currently employed? 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 Moderate MIGRATION.41440 92168 Information not available 01/01/2023 Mental Status Question Answer Note LastModified by Organizat ion Details LastModified Time Do you feel stressed (tense, restless, nervous, or anxious, or unable to sleep at night)? [id number] MIGRATION.[id number] Information not available 01/01/2023 Family History Relationship Description Onset Age of this Age Resolved Age Notes LastModified by Organization Details LastModified Time Maternal Grandmother Malignant tumor of colon [id number] Not available 01/01/2023 22:06:25 Medical History Condition Response BLINDNESS N RHEUMATIC FEVER N KIDNEY STONES N BLADDER PROBLEMS N MRSA N OTHER # 1 N POLIO N LUNG DISEASE/DISORDER N RADIATION / CHEMOTHERAPY N COPD N Other # 2 N BLOOD DISEASES N SURGERY N EAR OR HEARING PROBLEMS N MUMPS N FEMALE PROBLEMS / INFECTIONS N BOWEL PROBLEMS N DEPRESSION (INCLUDING POST ) N STROKE/TIA N THYROID DISEASE N ULCERS N BENIGN PROSTATIC HYPERPLASIA N MEASLES N CERVICALGIA N TB SKIN TEST N MYOCARDIAL INFARCTION N PARAPELGIA N OBESITY N GERD/NAUSEA N ANEURYSM N URINARY/BLADDER/KIDNEY PROBLEMS N CORONARY ARTERY DISEASE (CAD) N MENIERE'S DISEASE N ADDICTION CONCERNS N ENDOMETRIOSIS N USE OF BLOOD THINNERS N SKIN PROBLEMS N EMPHYSEMA N GASTROINTESTINAL DISORDER N MUSCLE,JOINT OR BONE PROBLEMS N GASTROINTESTINAL BLEEDING N BLOOD CLOTS N ASTHMA N CATARACTS N ERECTILE DYSFUNCTION N GI PROBLEMS N CHF N Low Testosterone N NEUROPATHY N INFERTILITY N AIDS/HIV N FRACTURES N CHEMOTHERAPY / RADIATION N VISION/EYE PROBLEMS N LIVER DISEASE N MALE HYPOGONADISM N HYPERTENSION N TOURETTE'S N ANXIETY DISORDER N BLOOD TRANSFUSION N ANEMIA/BLOOD DISORDER N CHRONIC EAR INFECTIONS N BRONCHITIS N TUBERCULOSIS N GLAUCOMA N FOOT PROBLEM N DIVERTICULITIS N SLEEP APNEA N CHICKENPOX N ALLERGIES/HAYFEVER N INFECTIOUS DISEASE N PROSTATE N HEART ARRHYTHMIA N INSOMNIA N HIGH CHOLESTEROL / HYPERLIPIDEMIA N EYE PROBLEMS N HYPERTHYROIDISM Y EATING DISORDER N EDEMA N CHRONIC PAIN SYNDROME N HYPOTHYROIDISM Y CONSTIPATION N CAROTID BLOCKAGE N BACK / NECK PROBLEMS N HAVE YOU BEEN HOSPITALIZED OR SEEN IN [facility] IN THE PAST YEAR ? N ATHEROSCLEROSIS N BREAST PROBLEMS N DIALYSIS N ECZEMA N FIBROMYALGIA N OSTEOPOROSIS N ARTHRITIS N NO SIGNIFICANT PAST MEDICAL HISTORY N APPENDICITIS N DIABETES, TYPE N BAD TEETH N HEARTBURN / REFLUX N ADD/ADHD N AUTISM SPECTRUM DISORDER (ASD) N HEPATITIS / LIVER DISEASE N PULMONARY DISEASE N GOUT N SLEEP DISORDER N ALZHEIMER'S DISEASE N PAIN N DEMENTIA N HERPES N SEIZURES/EPILEPSY N HEADACHES/MIGRAINES N VASCULAR DISEASE N PACEMAKER N DIZZINESS Y HEART DISEASE/HEART PROBLEMS N KIDNEY DISEASE N SCARLET FEVER N MULTIPLE SCLEROSIS N DEVELOPMENTAL OR BEHAVIORAL DISORDERS N MENTAL DISORDER/ILLNESS N CANCER: SPECIFY N CARDIAC ARRHYTHMIA N PNEUMONIA N ATRIAL FIBRILLATION N Gall Stones N PULMONARY EMBOLISM N AUTOIMMUNE DISEASE N Past Encounters Encounter ID Performer Location Encounter Start Date Encounter Closed Date Diagnosis/Indication Diagnosis SNOMED-CT Code Diagnosis ICD10 Code Diagnosis Note [id number] GONZALO Torrez [facility] Primary [facility] [place] [address] [facility] [address] [place] [address] 03/30/2021 00:00:00 03/30/2021 11:01:19 [id number] Kylee Dia MD [facility] [place] [address] [facility] [address] [place] [address] 07/27/2021 00:00:00 07/27/2021 18:10:55 [id number] _ATHN_MIGR ATION_1 _ATHENA_M IGRATION_ DEFAULT_1 _1 , 08/15/2021 00:00:00 08/15/2021 17:48:27 [id number] Kylee Dia MD [facility] Primary [facility] [place] [address] [facility] [address] [place] [address] 08/24/2021 00:00:00 08/24/2021 20:25:08 [id number] Alison Martínez MD [facility] [place] [address] [place] [id number] 10/19/2021 00:00:00 10/19/2021 15:44:28 [id number] Alison Martínez MD [facility] [place] [address] [place] [id number] 01/25/2022 00:00:00 01/25/2022 13:25:24 [id number] Alison Mart[facility]nez [facility] [place] [address] [place] [id number] 05/13/2022 00:00:00 05/13/2022 18:53:29 [id number] Alison Martínez MD [facility] [place] [address] [place] [address] 08/26/2022 00:00:00 08/26/2022 21:30:15 [id number] Alison Martínez MD [facility] [place] [address] [place] [id number] 01/17/2023 14:14:54 01/17/2023 15:20:38 Hypothyroidism 41794159 E03.9 FT4 low normal range- will uptitrate unithroid to 137 mcg and add liothyroni ne 5 mcg twice daily. Patient has cold intoleranc e will trial on T3 hormone. He was reminded to take his unithroid on empty stomach with glass of water and wait one hour to eat or have his coffee in morning and up to 4 hours if ever taking any heartburn or reflux medication s to help optimize absorption . Discussed paleo like diet with restrictio n of GMOs to help with energy and to optimize absorption of vitamins and minerals and reduce inflammati on. Plain X-ra y of lumbar spine abnormal 549744228 R93.7 Xray of spine showed spurring- patient has significan t lower back pain that does restrict his motility- need soft tissue imaging to assess nerve and to assure there are no soft tissue changes that would warrant sooner treatment than PT-PT would delay diagnosis and potential need for more aggressive treatment. Luteinizin g hormone level outside reference range 711293453 R89.1 Send for doppler u/s to screen for cysts or varicocele s as testostero ne of 800 ng/dL so in ideal range. Spent up to 28 minutes preparing to see the patient (eg, review of tests), obtaining and/or reviewing separately obtained history, performing a medically appropriat e examinatio n and evaluation , counseling and educating the patient, ordering medication s, tests, along with documentin g clinical informatio n in the electronic health record, independen tly interpreti ng results and communicat ing results to the patient. RTC in 3-4 months. Patient was provided a handwritte n lab order which contains our fax number. If he chooses to go outside of the [facility] system to obtain labwork he was advised to provide our fax number and my informatio n to the lab he will be obtaining labwork from in order to have his labs properly forwarded over for me to review so there is no loss of follow up due to use of outside network. He was also advised to contact our clinic informing us that he has completed his labwork so we are aware we will need to reach out to the appropriat e laboratory to request his results be forwarded to us so I might have the ability to review and make further medical decision making in his case. He voiced understand ing. [id number] Kylee Dia MD [facility] Primary Care [facility] [address] [facility] [address] [place] [address] 09/12/2023 11:20:46 09/12/2023 14:44:06 Hypothyroidism 31879617 E03.9 -chronic, stable-pt was referred to Dr. Marion, but she has left-will obtain labs today-new referral given Mucus in stool 808055603 R19.5 Anxiety 99195499 F41.9 -pt notes hx of anxiety for many years-note s constant sx of worry, lack of focus, sob, pacing-dis cussed referral to counseling Low back pain 810552597 M54.50 notes hx of fall on coccyx [id number] DILSHAD Bettencourt [facility] Primary Care [facility] [address] [facility] [address] [place] [address] 11/14/2023 10:49:08 11/14/2023 11:42:50 Hypothyroidism 17875886 E03.9 -he missed the call from [facility]- ans to call and f/u-refill unithroid given-labs obtained Mucus in stool 653482683 R19.5 -f/u with Dr. Weiss is 11/20/23 Anxiety 29215722 F41.9 -increasin g sertraline to 50mg d/t not getting desired effect-he has not f/u with [facility] d/t scheduling issues-has not used the propranolo l yet Attention deficit hyperactivity disorder 703930327 F90.9 -per pt he has a hx of ADHD, tx with escitalopr am in the past-he is wanting a referral to psych to obtain diagnosis [id number] Ida Weiss MD [facility] General Surgery [address] [place] [address] 11/19/2023 13:55:31 11/19/2023 14:21:20 Altered bowel function 55524401 R19.4 Pain in coccyx [id number] M53.3 TRY SITTING ON A DONUT / NSAIDS [id number] Adan Gardner MD [facility] [address] [place] [phone] 1 01/21/2025 15:18:08 01/21/2025 15:49:04 Anxiety [id number] F41.9 Well controlled with current meds Hypothyroidism [id number] E03.9 Due for labs, is self pay [id number] Adan Gardner MD [facility] [address] [place] [address] [phone] 1 04/13/2025 16:33:25 04/13/2025 17:19:06 Left foot drop [id number] M21.372 Secondary to injuryWill purchase AFO online Primary hypothyroidism [id number] E03.9 Due for labs, is self pay Health Concerns Section Related Observation LastModified by Organization Detai ls LastModified Time None Recorded Concern Status LastModified by Organization Details LastModified Time None Recorded Advance Directives Directive N: Payers Insurance Date Sequence Insurance Name Policy Number Policy Palma Covered Member ID Palma Member ID Guarantor Name 04/13/2025 1 [facility] - DOS ON OR AFTER 21 (MEDICAID REPLACEMENT - HMO) Art Cullen [id number] Art Cullen 04/13/2025 1 [place] [facility] Art Cullen [id number] Art Cullen 04/13/2025 2 [facility] (MEDICARE REPLACEMENT/AD VANTAGE - HMO) Art Cullen [id number] Art Cullen 04/13/2025 [facility] - DOS ON OR AFTER 21 (MEDICAID REPLACEMENT - HMO) Art Cullen [id number] Art Cullen 05/05/2025 1 *SELF PAY* Dhiraj Cullen 05/05/2025 1 [place] [facility] [place] Art Cullen [id number] Art Cullen Notes Date Note Type Note Provider Name and Address Organization Details Recorded Time 09/12/2023 text/html Pt is here for routine f/u Antonio FinkGONZALO tate-C [address], [place], [address], [employer] 09/12/2023 14:29:10 11/14/2023 text/html Pt is here for 1 month Antonio GONZALO Messina-Jenae [address], [place], [address], [employer] 11/14/2023 11:38:24 11/19/2023 text/html ART WAS SEEN IN THE OFFICE TODAY . PT IS C/O MUCUS PER RECTUM . PT DESCRIBES COCCYXGEAL PAIN . BMs ARE CHANGED IN CALIBER/ HE REPORTS PUSHING /STRAINING AND THIN STOOLS . HE DENIES WT LOSS . PT HAS NEVER HAD A COLONOSCOPY. Ida Weiss MD [address], [place], [address], [employer] [facility] [employer] 11/19/2023 14:27:37 01/21/2025 text/html Art Cullen is a 49 year old male patient here today for medications refills His past medical histroy is significant for anxiety. This is controlled with sertraline 50 mg, he has been off of this for a while and notes that he needs this He has a history of hypothyroidism, has been taking Unithroid 137 mcg. Needs labs refills GONZALO Moraes [address] [facility] [facility] [address], [place], [address], [employer] 01/21/2025 15:46:26 04/13/2025 text/html Art Cullen is a 49 year old male patient here today for left foot concerns He states that he stepped on a garden spike 03/03/2025 that had some rust, his foot did not bleed. He had some foot drop after this but it resolved. A few weeks later he began having severe muscle cramps and foot drop which has been causing him to fall multiple times. He did go to 1 week ago and had an XR which was negative.He is unable to flex the left foot now, can extend the foot. He does have some mild movement in the toes.His pain radiates to his left calf, thigh, and glute His last tetanus shot was 02/2025 He was stung by a wasp, has a diffuse flushing and chest tightness GONZALO Moraes [address], [facility] [address], [place], [address], [place] [facility] 04/13/2025 17:18:09
== END 2025-05-24 07:10 | disposition home or self-care (01) ==
PROVIDERS: Visit Provider Podiatrist Foot & Ankle Surgery
DX: M66.272 Spontaneous rupture of extensor tendons, left ankle and foot (principal); M21.372 Foot drop, left foot; M65.972 Unspecified synovitis and tenosynovitis, left ankle and foot; S86.312A Strain of muscle(s) and tendon(s) of peroneal muscle group at lower leg level, left leg, initial encounter; S93.422A Sprain of deltoid ligament of left ankle, initial encounter; X58.XXXA Exposure to other specified factors, initial encounter
CPT/HCPCS: 73721

== ENCOUNTER 2025-06-22 08:59 | Outpatient (CLI) | payer MEDICAID, SELFPAY ==
--- OUTSIDE RECORDS SUMMARY | 2025-06-21 13:49 | XMS_ITS | Encounter Summary ---
Author Organization [facility] Address [address] [facility] [place] [address] Phone Care Team Providers Care Studio Sales Associate Name Role Phone Bridget Glover APRN, CNP Primary Care Provider [phone] Encounter Details Date Type Department Care Team (Latest Contact Info) Description 06/21/2025 1:49 PM CDT - 06/21/2025 11:59 PM CDT Hospital Encounter [facility] [address] [place] [address] Provider, Not On File [place] Arrived Discharge Disposition: Discharged to home or Selfcare Social History Tobacco Use Types Packs/Day Years Used Date Smoking Tobacco: Every Day Cigarettes Smokeless Tobacco: Never Alcohol Use Standard Drinks/Week Comments Yes 0 (1 standard drink = 0.6 oz pur e alcohol) occasional Sex and Gender Information Value Date Recorded Sex Assigned at Not on file Legal Sex Male 8:30 AM CDT Gender Identity Not on file Sexual Orientation Not on file documented as of this encounter Medications at Time of Discharge Cyanocobalamin (B-12 PO) Take by mouth. cyclobenzaprine (FLEXERIL) 10 MG Tablet Take 10 mg by mouth 3 times daily as needed. gabapentin (NEURONTIN) 100 MG Capsule Take 100 mg by mouth 3 times daily. levothyroxine (SYNTHROID) 137 MCG Tablet Take 137 mcg by mouth daily. sertraline (ZOLOFT) 50 MG Tablet Take 50 mg by mouth daily. documented as of this encounter Plan of Treatment Upcoming Encounters Date Type Department Care Team ( Contact Info) Description 06/23/2025 8:00 AM CDT Appointment [facility] MRI [address] [place] [address] Jere Lester [facility] [address] [facility] [place] [address] Discharge Disposition: Discharged to home or Selfcare 07/29/2025 9:15 AM CDT Office Visit [facility] [address] [place] [address] Jere Lester MD [address] [place] [address] documented as of this encounter Procedures Procedure Name Priority Date/Time Associated Diagnosis Comments MR REFERENCE IMAGES FOR IMAGE IMPORT Routine 06/21/2025 1:49 PM CDT documented in this encounter Results * MR REFERENCE IMAGES FOR IMAGE IMPORT (06/21/2025 1:49 PM CDT) us Not On File Provider IMG MR ORDERABLES Final Res ult documented in this encounter Visit Diagnoses Not on filedocumented in this encounter Care Teams Studio Sales Associate Relationship Specialty Start Date End Date Bridget Glover APRN, PRECISION FILER HAND [address] [place] [address] PCP - General Advanced Practice Nurse 05/31/25 documented as of this encounter
--- OUTSIDE RECORDS SUMMARY | 2025-06-22 09:07 | XMS_ITS | Clinical Summary ---
Author Organization [facility] Address [address] [place] [address] Phone Care Team Providers Care Benefits Specialist Name Role Phone Bridget Glover APRN, ANDRESSA Primary Care Provider [phone] Allergies No known active allergies Medications Cyanocobalamin (B-12 PO) Take by mouth. Active cyclobenzaprine (FLEXERIL) 10 MG Tablet Take 10 mg by mouth 3 times daily as needed. Active gabapentin (NEURONTIN) 100 MG Capsule Take 100 mg by mouth 3 times daily. Active levothyroxine (SYNTHROID) 137 MCG Tablet Take 137 mcg by mouth daily. Active sertraline (ZOLOFT) 50 MG Tablet Take 50 mg by mouth daily. Active Encounters Date Type Department Care Team Description 06/21/2025 1:49 PM CDT - 06/21/2025 11:59 PM CDT Hospital Encounter [facility] [address] [place] [address] Provider, Not On File Arrived Discharge Disposition: Discharged to home or Selfcare 06/16/2025 9:45 AM CDT Office Visit [facility] [address] [place] [address] Jere Lester MD Left foot drop (Primary Dx); Chronic midline low back pain without sciatica Discharge Disposition: Discharged to home or Selfcare 06/16/2025 Travel from Last 3 Months Social History Tobacco Use Types Packs/Day Years Used Date Smoking Tobacco: Every Day Cigarettes Smokeless Tobacco: Never Tobacco Cessation:Ready to Q uit: No; Counseling Given: Yes Alcohol Use Standard Drinks/Week Comments Yes 0 (1 standard drink = 0.6 oz pur e alcohol) occasional Sex and Gender Information Value Date Recorded Sex Assigned at Not on file Legal Sex Male 8:30 AM CDT Gender Identity Not on file Sexual Orientation Not on file Last Filed Vital Signs Vital Sign Reading Time Taken Comments Blood Pressure 122/88 06/16/2025 9:13 AM CDT Pulse 62 06/16/2025 9:13 AM CDT Temperature 36.6 C (97.9 F) 06/16/2025 9:13 AM CDT Respiratory Rate 16 06/16/2025 9:13 AM CDT Oxygen Saturation 100% 06/16/2025 9:13 AM CDT Inhaled Oxygen Concentration - - Weight 71.1 kg (156 lb 11.2 oz) 06/16/2025 9:13 AM CDT Height 190.5 cm (6' 3) 06/16/2025 9:13 AM CDT Body Mass Index 19.59 06/16/2025 9:13 AM CDT Plan of Treatment Upcoming Encounters Date Type Department Care Team (Late st Contact Info) Description 06/23/2025 8:00 AM CDT [facility] [address] [place] [address] Jere Lester MD [address] [place] [address] Discharge Disposition: Discharged to home or Selfcare 07/29/2025 9:15 AM CDT [facility] [address] [place] [address] Jere Lester MD [address] [place] [address] Health Maintenance Due Date Last Done Comments Hepatitis C Virus (HCV) Screening 1975 Hepatitis B Immunization (1 of 3 - 19+ 3-dose series) 1994 Pneumococcal Immunization Co mbined (1 of 2 - PCV) 1994 Cologuard 2020 Colonoscopy 2020 Colorectal Cancer Screening 2020 Immunochemical Fecal Occult Blood 2020 SARS-COV-2 Immunization (1 - 2023- season) 2024 Influenza Immunization (#1) 2025 Respiratory Syncytial Virus (RSV) Immunization (Adult) (1 - 1-dose 75+ series) 2050 TdaP Immunization Completed 12/19/2024 Human Papillomavirus (HPV) Immunization Aged Out No longer eligible b ased on patient's age to complete this topic Meningococcal Immunization (ACWY) Aged Out No longer eligible based on patient's age to complete this topic Rotavirus Immunization Aged Out No lo nger eligible based on patient's age to complete this topic Procedures Procedure Name Priority Date/Time Associated Diagnosis Comments MR REFERENCE IMAGES FOR IMAGE IMPORT Routine 06/21/2025 1:49 PM CDT CBC WITH AUTO DIFFERENTIAL Routine 06/16/2025 10:23 AM CDT Left foot drop ANCA MPO PR3 Routine 06/16/2025 10:23 AM CDT Left foot drop ANCA IFA SCREEN Routine 06/16/2025 10:23 AM CDT Left foot drop ANCA PANEL SCREEN W/ MPO & PR3, TITER IF POS Routine 06/16/2025 10:23 AM CDT Left foot drop HEMOGLOBIN A1C W/ ESTIMATED GLUCOSE Routine 06/16/2025 10:23 AM CDT Left foot drop COMPLETE BLOOD COUNT (CBC) WITH DIFF Routine 06/16/2025 10:23 AM CDT Left foot drop CMP (COMPREHENSIVE METABOLIC PANEL) Routine 06/16/2025 10:23 AM CDT Left foot drop VITAMIN B12 Routine 06/16/2025 10:23 AM CDT Left foot drop OTTONIEL SCREEN MULTIPLEX W/REFLEX TIGIST Routine 06/16/2025 10:23 AM CDT Left foot drop TIGIST PANEL Routine 06/16/2025 10:23 AM CDT Left foot drop from Last 3 Months Results * MR REFERENCE IMAGES FOR IMAGE IMPORT (06/21/2025 1:49 PM CDT) us Not On File Provider IMG MR ORDERABLES Final Res ult * HEMOGLOBIN A1C W/ ESTIMATED GLUCOSE (06/16/2025 10:23 AM CDT) HGB-A1C 5.4 4.0 - 6.0 % 06/16/2025 10:50 AM CDT [facility] Est Average Glucose 108.3 mg/dL 06/16/2025 10:50 AM CDT [facility] Blood Venipuncture / Unknown 06/16/2025 10:23 AM CDT 06/16/2025 10:36 AM CDT Narrative [facility] - 06/16/2025 10:50 AM CDT HEMOGLOBIN A1C: DIABETIC PATIENTS: WELL-CONTROLLED: 6.2 - 7.0 INTERMEDIATE WELL-CONTROLLED: 7.0 - 9.0 POORLY-CONTROLLED: >9.0 Specimens containing greater than 5% of Hemoglobin F may result in lower than expected % HbA1C results. us Jere Lester MD CHEMISTRY ORDERABLES Final R esult [facility] [address] [place] [address] * ANCA MPO PR3 (06/16/2025 10:23 AM CDT) PROTEINASE 3 AB 0.3 <1.0 AI 3:37 PM CDT [facility] MYELOPEROXID[facility] AB <0.2 <1.0 AI 2024 3:37 PM CDT [facility] Blood Venipuncture / Unknown 06/16/2025 10:23 AM CDT 06/16/2025 10:36 AM CDT Narrative [facility] - 06/16/2025 3:37 PM CDT Antibody testing was performed by multiplex flow immunoassay on the [employer] platform. us Jere Lester MD IMMUNOLOGY ORDERABLES Final Result [facility] [address] [place] [address], [place] * ANCA IFA SCREEN (06/16/2025 10:23 AM CDT) ANCA IFA SCREEN <1:20 <1:20 titer 06/17/20 25 12:42 PM CDT [facility] ANCA TITER Not Applicable <1:20, Not Applicable titer 06/17/2025 12:42 PM CDT [facility] ANCA PATTERN Not Applicable 06/17/2025 12:42 PM CDT [facility] Comment: Antineutrophil cytoplasmic antibodies (ANCA) are found in the sera of patients with necrotizing vasculitides and hence, serve as an aid to the diagnosis of these disorders. ANCA react with enzymes in the cytoplasmic granules of human neutrophils including proteinase 3 (PR3), myeloperoxidase (MPO), elastase, and cathepsin G. ANCA can occur in patients with autoimmune vasculitis including Granulomatosis with polyangiitis (GPA) (formerly Lisa's granulomatosis) , microscopic polyangiitis (MPA), or organ limited variants, and bowel diseases and other autoimmune disorders. Detection of ANCA is a well-established diagnostic test for the evaluation of patients suspected of having autoimmune vasculitis. Antibodies to PR3 occur in patients with WG (both classical WG and limited WG) and produce a characteristic pattern of granular cytoplasmic fluorescence on ethanol-fixed neutrophils called the cANCA pattern. Antibodies to MPO occur predominantly in patients with MPA and produce a pattern of perinuclear cytoplasmic fluorescence on ethanol-fixed neutrophils called the pANCA pattern. The presence of an antinuclear antibody (OTTONIEL) may mimic a pANCA on ethanol-fixed neutrophils. When used for diagnosis, it is recommended that specific tests for proteinase 3 (PR3) ANCA and myelperoxidase (MPO) ANCA be performed in addition to testing for cANCA and pANCA. cANCA titer may be useful for monitoring treatment response in patients with WG (systemic or organ-limited disease). Increasing titer suggests relapse of disease while a decreasing titer suggests successful treatment. Blood Venipuncture / Unknown 06/16/2025 10:23 AM CDT 06/16/2025 10:36 AM CDT us Jere Lester MD IMMUNOLOGY ORDERABLES Final Result [facility] [address] [place] [address], * CBC WITH AUTO DIFFERENTIAL (06/16/2025 10:23 AM CDT) WBC 5.90 4.00 - 12.00 10(3)/mcL 06/16/2025 10:39 AM CDT [facility] RBC 5.48 4.40 - 5.80 10(6)/[facility] 06/16/2025 10:39 AM CDT [facility] HEMOGLOBIN (HGB) 15.0 13.0 - 16.5 g/dL 06/16/2025 10:39 AM CDT [facility] HEMATOCRIT (HCT) 47.2 38.0 - 50.0 % 06/16/2025 10:39 AM CDT [facility] MCV 86.1 82.0 - 96.0 fL 06/16/2025 10:39 AM CDT [facility] MCH 27.4 26.0 - 32.0 pg 06/16/2025 10:39 AM CDT [facility] MCHC 31.8 31.0 - 36.0 g/dL 06/16/2025 10:39 AM CDT [facility] PLATELET COUNT 238 140 - 440 10(3)/[facility] 06/16/2025 10:39 AM CDT [facility] RDW 13.2 11.8 - 15.5 % 06/16/2025 10:39 AM CDT [facility] MPV 10.4 8.0 - 12.6 fL 06/16/2025 10:39 AM CDT [facility] NEUTROPHILS 59.1 40.0 - 68.0 % 06/16/2025 10:39 AM CDT [facility] LYMPHOCYTES 25.9 19.0 - 49.0 % 06/16/2025 10:39 AM CDT [facility] MONOCYTES 11.9 3.0 - 13.0 % 06/16/2025 10:39 AM CDT [facility] EOSINOPHILS 2.4 0.0 - 8.0 % 06/16/2025 10:39 AM CDT [facility] BASOPHILS 0.5 0.0 - 1.0 % 06/16/2025 10:39 AM CDT [facility] IMMATURE GRANULOCYTE 0.2 0.0 - 0.4 % 06/16/2025 10:39 AM T [facility] Comment:Immature Granulocyte s includes Metamyelocytes, Myelocytes, and Promyelocytes. ABSOLUTE NEUTROPHILS 3.49 1.40 - 5.30 10(3)/mcL 06/16/2025 10:39 AM CDT [facility] ABSOLUTE LYMPHOCYTES 1.53 0.90 - 3.30 10(3)/[facility] 06/16/2025 10:39 AM CDT [facility] ABSOLUTE MONOCYTES 0.70 0.10 - 0.90 10(3)/[facility] 06/16/2025 10:39 [facility] ABSOLUTE EOSINOPHIL 0.14 0.00 - 0.50 10(3)/[facility] 06/16/2025 10:39 AM CDT [facility] ABSOLUTE BASOPHILS 0.03 0.00 - 0.10 10(3)/[facility] 06/16/2025 10:39 AM T [facility] ABSOLUTE IMMATURE GRANULOCYTE 0.01 0.00 - 0.03 10 (3) mcL. 06/16/2025 10:39 AM [facility] NRBC PER 100 WBC 0 06/16/20 10:39 AM [facility] Blood Venipuncture / Unknown 06/16/2025 10:23 AM CDT 06/16/2025 10:36 AM CDT us Jere Lester MD HEMATOLOGY ORDERABLES Final Result Performing Organization Address City/[facility]/ZIP Co de Phone Number [facility] [address] [place] [address] * VITAMIN B12 (06/16/2025 10:23 AM CDT) VITAMIN B12 657 213 - 816 pg/mL 06/16/2025 11:30 AM CDT [facility] Blood Venipuncture / Unknown 06/16/2025 10:23 AM CDT 06/16/2025 10:36 AM CDT us Jere Lester MD CHEMISTRY ORDERABLES Final R esult Performing Organization Address City/[facility]/ZIP Co de Phone Number [facility] [address] [place] [address] * TIGIST PANEL (06/16/2025 10:23 AM CDT) DNA AB, DOUBLE STRAND 3 <5 IU/mL 06/16/2025 3:21 PM CDT [facility] Comment: <= 4 Negative 5-9 Indeterminate >= 10 Positive CHROMATIN AB <0.2 <1.0 AI 06/16/2025 3:21 PM CDT [facility] RIBOSOMAL P AB <0.2 <1.0 AI 06/16/2025 3:21 PM CDT [facility] SS-A <0.2 <1.0 AI 06/16/2025 3:21 PM CDT [facility] SS-B <0.2 <1.0 AI 06/16/2025 3:21 PM CDT [facility] CENTROMERE B AB <0.2 <1.0 AI 3:21 PM CDT [facility] SM ANTIBODY <0.2 <1.0 AI 06/16/2025 3:21 PM CDT [facility] SM VETERINARY ASSISTANT <0.2 <1.0 AI 06/16/2025 3:21 PM CDT [facility] VETERINARY ASSISTANT AB <0.2 <1.0 AI 06/16/2025 3:21 PM CDT [facility] SCL-70 0.2 <1.0 AI 06/16/2025 3:21 PM CDT [facility] EUNICE-1 <0.2 <1.0 AI 06/16/2025 3:21 PM CDT [facility] Blood Venipuncture / Unknown 06/16/2025 10:23 AM CDT 06/16/2025 10:36 AM CDT Narrative [facility] - 06/16/2025 3:21 PM CDT Antibody testing was performed by multiplex flow immunoassay on the [employer] platform. us Jere Lester MD IMMUNOLOGY ORDERABLES Final Result Performing Organization Address City/State/[facility] Co de Phone Number [facility] [address] [place] [address], * (ABNORMAL) CMP (COMPREHENSIVE METABOLIC PANEL) (06/16/2025 10:23 AM CDT) SODIUM 138 136 - 145 mmol/L 06/16/2025 10:57 AM CDT [facility] POTASSIUM 4.0 3.5 - 5.1 mmol/L 06/16/2025 10:57 AM CDT [facility] CHLORIDE 104 98 - 107 mmol/L 06/16/2025 10:57 AM CDT [facility] CO2, VENOUS 25 22 - 30 mmol/L 06/16/2025 10:57 AM CDT [facility] ANION GAP 13.0 <18.0 mmol/L 06/16/2025 10:57 AM CDT [facility] GLUCOSE 91 70 - 99 mg/dL 06/16/2025 10:57 AM CDT [facility] BUN 11 9 - 21 mg/dL 06/16/2025 10:57 AM [facility] CREATININE, BLOOD 1.04 0.70 - 1.30 mg/dL 06/16/2025 10:57 AM [facility] BUN/CREATININE RATIO 11(L) 12 - 20 ratio 06/16/2025 10:57 AM [facility] TOTAL PROTEIN 7.2 6.0 - 8.0 g/dL 06/16/2025 10:57 AM [facility] ALBUMIN 4.4 3.5 - 5.0 g/dL 06/16/2025 10:57 AM [facility] A/G RATIO 1.6 1.0 - 2.2 06/16/2025 10:57 AM [facility] CALCIUM 9.1 8.7 - 10.5 mg/dL 06/16/2025 10:57 AM [facility] T BILI 0.5 0.2 - 1.2 mg/dL 06/16/2025 10:57 AM [facility] SGOT (AST) 25 <43 U/L 06/16/2025 10:57 AM [facility] SGPT (ALT) 13 <56 U/L 06/16/2025 10:57 AM [facility] ALKALINE PHOSPHATASE 67 40 - 150 U/L 06/16/2025 10:57 AM [facility] IS THE PATIENT REQUIRED TO BE FASTING? No 06/16/2025 10:57 AM [facility] GFR, ESTIMATED >60 >=60 06/16/2025 10:57 AM [facility] Comment: Creatinine Clearance is the preferred criteria for selecting drug dose adjustments in renally impaired patients. The GFR is provided as additional pertinent clinical information. GFR is reported in mL/min/1.73 sq m. Calculation based on the Chronic Kidney Disease Epidemiology Collaboration (CKD- EPI) equation refit without adjustment for race. GFR, EST. >60 >=60 025 10:57 AM [facility] GFR, EST. NONAFRICAN >60 >=60 06/16/2025 10:57 AM CDT [facility] Blood Venipuncture / Unknown 06/16/2025 10:23 AM CDT 06/16/2025 10:36 AM CDT us Jere Lester MD CHEMISTRY ORDERABLES Final R esult [facility] [address] [place] [address] * OTTONIEL SCREEN MULTIPLEX W/REFLEX TIGIST (06/16/2025 10:23 AM CDT) OTTONIEL SCR MULTIPLEX Negative Negative, See comment 06/16/2025 3:21 PM CDT [facility] Blood Venipuncture / Unknown 06/16/2025 10:23 AM CDT 06/16/2025 10:36 AM CDT Narrative [facility] - 06/16/2025 3:21 PM CDT Antibody testing was performed by multiplex flow immunoassay on the [employer] platform. us Jere Lester MD IMMUNOLOGY ORDERABLES Final Result Performing Organization Address City/[facility] Co de Phone Number [facility] [address] [place] [address], [place] from Last 3 Months Insurance MEDICAID [place] Care Teams Benefits Specialist Relationship Specialty Start Date End Date [place], [place], [employer], [employer] [address] [place] [address] PCP - General Advanced Practice Nurse 05/31/25
--- OUTSIDE RECORDS SUMMARY | 2025-06-22 09:07 | XMS_ITS | Patient Health Record ---
Author Organization [facility] Address [address] [facility] [address] [place] [address] Care Team Providers Care [employer] Dispatcher Name Role Phone Juan Limon Unavailable [phone] Reason For Referral No Information Medications Medication SIG (Take, Route, Frequency, Duration) Notes Start Date End Date Status Unithroid 125 MCG Tablet Oral Active Propranolol HCl 10 MG Tablet Oral Active Unithroid 137 MCG Tablet Oral Active Liothyronine Sodium 5 MCG Tablet Oral Active Doxycycline Hyclate 100 MG Capsule Oral Active Sertraline HCl 25 MG Tablet Oral Active Azithromycin 500 MG Tablet Oral Active Plan Of Treatment No Information
--- NOTE | 2025-06-22 09:20 | NEURO_ITS ---
Impression: # Complains of left foot drop. ? # Normal left Posterior Tibial nerve study. ? # Left Peroneal nerve compression around the fibular head ? # Left Peroneal neuropathy. # Patient does have mild Quadriceps weakness will benefit from MRI of L-5. spine. Nerve Conduction Studies ?Stim Site NR Peak (ms) P-T Amp (?V) Site1 Site2 Delta-P (ms) Dist (cm) Ha (m/s) Left Sup Fibular Anti Sensory (Ant Lat Mall)??? NO RESPONSE 14 cm NR 14 cm Ant Lat Mall 16.0 Left Sural Anti Sensory (Lat Mall) Calf ? 4.0 9.9 Calf Lat Mall 4.0 16.0 40 ?Stim Site NR Onset (ms) O-P Amp (mV) Site1 Site2 Delta-0 (ms) Dist (cm) Ha (m/s) Left Peroneal Motor (Vastus Med) Ankle ? 4.5 1.9 Popit Ankle 8.9 36.0 40 Popit ? 13.4 1.4 B Fib Ankle 11.3 49.0 43 B Fib ? 15.8 1.1 Left Tibial Motor (Abd Montiel Brev) Ankle ? 4.8 3.6 Knee Ankle 9.3 46.0 49 Knee ? 14.1 2.4 F Wave Studies ?NR F-Lat (ms) L-R F-Lat (ms) Left Peroneal (Mrkrs) (EDB) ? 59.50 Left Tibial (Mrkrs) (Abd Hallucis) ? 56.91 Electromyography ?Side Muscle Nerve Root Ins Act Fibs Amp Dur Recrt Comment Left AntTibialis Dp Br Fibular L4-5 Nml Nml Decr >12ms +1 Left Gastroc Tibial S1-2 Nml Nml Nml Nml Nml Left Fibularis Long Sup Br Fibular L5-S1 Nml Nml Nml Nml Nml Left Flex Dig Long Tibial L5-S2 Nml Nml Nml Nml Nml Left Ext Dig Brev Dp Br Fibular L5, S1 Nml Nml Decr >12ms +1 Left QuadratusFem QuadFemoris L4-5, S1 Nml Nml Decr >12ms +1
== END 2025-06-22 09:00 | disposition home or self-care (01) ==
PROVIDERS: Visit Provider Podiatrist Foot & Ankle Surgery
DX: G58.8 Other specified mononeuropathies (principal); G62.9 Polyneuropathy, unspecified; M62.81 Muscle weakness (generalized); M21.372 Foot drop, left foot
CPT/HCPCS: 95886; 95908